=== PATIENT | male | born 1995 | race Caucasian/White ===

== ENCOUNTER 2023-07-23 13:39 | Emergency (ER) | payer MEDICAID, SELFPAY ==
[2023-07-23 13:50] VITALS: BP 107/72; PULSE 90; RESP 16; TEMP 36.8; O2SAT 98; BMI 26.4
--- NOTE | 2023-07-23 14:10 | ED_ITS ---
Documented by User: JEAN-CLAUDE Hernández 07/23/23 16:08 HPI - Dental/Oral 2 General: Chief complaint: Skin/Abscess/Foreign Body Stated complaint: abcess in mouth Time Seen by Provider: 07/23/23 14:08 Source: patient Mode of arrival: ambulatory Limitations: no limitations History of Present Illness: Patient is a 28-year-old male who presents to ED today for evaluation of a dental abscess. Patient states he has had abscess for about 5 days now. He was seen at a walk-in clinic 2 days ago and placed on Augmentin. He states he has had 5 doses of this medication. Yesterday and into today he started noticing swelling to the right side of his face and lip. He is not running fevers. Denies neck pain or neck swelling. He is able to swallow and control secretions. Onset (ago): day(s) Duration: constant Severity: moderate Relieving factors: nothing Exacerbating factors: nothing Context: history of dental caries and poor dental care Associated symptoms: Reports no associated symptoms; Denies fever(s) or odynophagia Treatment prior to arrival: other (antibiotics) Review of Systems 2 Const: Denies: fever(s), chills, fatigue or malaise Eyes: Denies: change in vision or blurry vision ENMT: Reports: dental pain and sinus pain; Denies: throat pain, odynophagia, nasal discharge or nasal congestion Card: Denies: chest pain Resp: Denies: dyspnea GI: Denies: nausea or vomiting Musc: Denies: neck pain, back pain, extremity pain or joint pain Neuro: Denies: headache(s), numbness in extremities, weakness in extremities or sensory changes [facility] ED 2 PFSH: Social History Smoking and tobacco/nicotine status: current every day tobacco/nicotine user Alcohol intake: never Substance/Drug Use: never Physical Exam 2 Const: COMMON NORMALS: no acute distress, average body habitus, patient oriented x3, no limitations, healthy appearing, alert and well nourished HENMT: COMMON NORMALS: Normal external nose present FACE & SINUS: other (swelling/tenderness to R maxillary facial region and upper lip) NOSE: Normal external nose present MOUTH: other (swollen upper lip) TEETH & GINGIVA: Y es caries and Yes poor dentition TEETH & GINGIVA IMAGES: 1. purulent draining abscess formation; severe dental caries 2. cyst vs extension of abscess THROAT: posterior oropharynx normal and tonsils normal Eye: GENERAL EYE: appearance normal, both eyes and all related structures Neck/C-Spine: COMMON NORMALS: no lymphadenopathy GENERAL: Yes normal visual inspection, No anterior neck swelling and No submandibular swelling Resp: COMMON NORMALS: normal respiratory effort Cardio: COMMON NORMALS: regular rate and regular rhythm RATE: regular rate RHYTHM: regular rhythm Neuro: COMMON NORMALS: patient oriented x3, CN's II-XII intact bilaterally, moves all extremities, no focal motor deficits, no sensory deficits noted and gait normal SENSORIUM/ORIENTATION: Yes alert Course 2 Vital Signs: Vital signs: Vital Signs Temperature 98.2 F 07/23/23 13:50 Pulse Rate 93 07/23/23 14:34 Respiratory Rate 16 07/23/23 14:34 Blood Pressure 102/63 07/23/23 14:34 Pulse Oximetry 99 07/23/23 14:34 Oxygen Delivery Me thod Room Air 07/23/23 14:34 MDM - Dental/Oral Medical Decision Making Patient is a 28-year-old male here for a dental abscess as well as diffuse right-sided facial swelling. Vital signs are stable. Blood work is unremarkable. CT scan showing right anterior maxillary periapical cyst/abscess. He has been on antibiotics for approximately 24 hours now does not seem to be improving. He was given IV Unasyn here. [facility] Lab Data 07/23/23 14:27 07/23/23 14:[address] 07/23/23 14:21 IMPRESSION: Right anterior maxillary periapical cyst with apparent secondary infection and abscess formation with a small intraoral and small buckle component. Overlying cellulitis. Laboratory Results WBC 10.04 10^3/uL (3.29-11.43) 07/23/23 14:27 RBC 5.08 10^6/uL (3.85-5.65) 07/23/23 14:27 Hgb 15.40 g/dL (11.27-16.99) 07/23/23 14:27 Hct 46.2 % (37-53) 07/23/23 14: MCV 90.9 fl (82-101) 07/23/23 14:27 MCH 30.3 pg (27-33) 07/23/23 14:27 MCHC 33.3 g/dL (30-55) 07/23/23 14:27 RDW 12.7 % (12.1-15.1) 07/23/23 14:27 Plt Count 205 10^3/cmm (157-399) 07/23/23 14:27 MPV 9.1 fL (7.4-10.4) 07/23/23 14:27 Neut % (Auto) 68.0 % 07/23/23 14:27 Lymph % (Auto) 21.4 % 07/23/23 14:27 [place] % (Auto) 9.0 % 07/23/23 14:27 Eos % (Auto) 1.0 % 07/23/23 14:27 Baso % (Auto) 0.3 % 07/23/23 14:27 Neut # (Auto) 6.83 10^3/uL (1.8-7.7) 07/23/23 14:27 Lymph # (Auto) 2.2 10^3/uL (0.8-4.8) 07/23/23 14:27 [place] # (Auto) 0.9 10^3/uL (0.2-0.9) 07/23/23 14:27 Eos # (Auto) 0.1 10^3/uL (0.0-0.8) 07/23/23 14:27 Baso # (Auto) 0.0 10^3/uL (0.0-0.1) 07/23/23 14:27 Nucleated RBC % (auto) 0 % 07/23/23 14:27 Nucleated RBCs # 0.0 /100WBC 07/23/23 14:27 Sodium 140 mmol/L (136-145) 07/23/23 14:27 Potassium 4.1 mmol/L (3.5-5.1) 07/23/23 14:27 Chloride 101 mmol/L (98-107) 07/23/23 14:27 Carbon Dioxide 28 mmol/L (22-29) 07/23/23 14:27 Anion Gap 15.1 (5-19) 07/23/23 14:27 BUN 10 mg/dL (6-20) 07/23/23 14:27 Creatinine 0.8 mg/dL (0.7-1.2) 07/23/23 14:27 GFR Calculation 114.3 mL/min (90-130) 07/23/23 14:27 Glucose 87 mg/dL (65-115) 07/23/23 14:27 Calculated Osmolality 288 mOsm/kg (285-295) 07/23/23 14:27 Calcium 10.1 mg/dL (8.5-10.5) 07/23/23 14:27 Total Bilirubin 0.4 mg/dL (0.15-1.2) 07/23/23 14:27 AST 13 U/L (0-40) 07/23/23 14:27 ALT 14 U/L (0-41) 07/23/23 14:27 Alkaline Phosphatase 106 U/L (40-130) 07/23/23 14:27 Total Protein 7.8 g/dL (6.6-8.7) 07/23/23 14:27 Albumin 4.6 g/dL (3.5-5.2) 07/23/23 14:27 Globulin 3.2 g/dL (1.3-4.6) 07/23/23 14:27 Discharge Plan Discharge Patient Disposition: Home Clinical Impression: Abscess, dental Condition: Stable Prescriptions: No Action amoxicillin-pot clavulanate 875-125 mg tablet 1 tab PO BID 10 Days Qty: 20 0RF Discharge Orders: Discharge ED (Routine); Ordered 07/23/23 Ordered By: Pradeep Solorzano Discharge Diet: Advance as tolerated Patient Instructions: Opioid Safety, Pain Management Activity Restrictions/Additional Instructions: Follow up with Dr Olmedo's office in [place], [place]. Call his office in [place] first thing in the morning at [phone] to schedule an appointment. Please tell the person scheduling the appointment that you are in the ER and he was consulted about this case and requested you be seen in his office as soon as possible. Return to the emergency department if any rapid worsening symptoms, difficulty swallowing, painful tongue movements, and as needed Coding Level of Care Code ED Plc Technician for Chg Fwd Documented by User: Pradeep SolorzanoPEDRO 07/23/23 17:52 HPI - Dental/Oral 2 General: Chief complaint: Skin/Abscess/Foreign Body Stated complaint: abcess in mouth Time Seen by Provider: 07/23/23 14:08 [facility] ED 2 PFSH: Social History Smoking and tobacco/nicotine status: current every day tobacco/nicotine user Alcohol intake: never Substance/Drug Use: never Physical Exam 2 HENMT: TEETH & GINGIVA IMAGES: 1. purulent draining abscess formation; severe dental caries 2. cyst vs extension of abscess Course 2 Vital Signs: Vital signs: Vital Signs Temperature 98.2 F 07/23/23 13:50 Pulse Rate 93 07/23/23 14:34 Respiratory Rate 16 07/23/23 14:34 Blood Pressure 102/63 07/23/23 14:34 Pulse Oximetry 99 07/23/23 14:34 Oxygen Delivery Me thod Room Air 07/23/23 14:34 MDM - Dental/Oral Medical Decision Making Patient is a 28-year-old male here for a dental abscess as well as diffuse right-sided facial swelling. Vital signs are stable. Blood work is unremarkable. CT scan showing right anterior maxillary periapical cyst/abscess. He has been on antibiotics for approximately 24 hours now does not seem to be improving. He was given IV Unasyn here. Will consult with [facility]. Patient received from JEAN-CLAUDE Briggs. Awaiting consult Called to see from [facility] call pertaining to [facility] consult. Dr. Olmedo advised to call the office in the morning for an appointment. Information will be provided for patient. Patient does already have a prescription for Augmentin sent to his pharmacy. Discussed with patient the importance of follow-up with [facility] due to the abscess. Differential Diagnosis Likely gingival abscess, toothache, dental abscess and fracture of tooth Medical Records I reviewed the patient's medical records. Lab Data I reviewed the patient's lab results. 07/23/23 14:27 07/23/23 14:[address] 07/23/23 14:21 IMPRESSION: Right anterior maxillary periapical cyst with apparent secondary infection and abscess formation with a small intraoral and small buckle component. Overlying cellulitis. Laboratory Results WBC 10.04 10^3/uL (3.29-11.43) 07/23/23 14:27 RBC 5.08 10^6/uL (3.85-5.65) 07/23/23 14:27 Hgb 15.40 g/dL (11.27-16.99) 07/23/23 14:27 Hct 46.2 % (37-53) 07/23/23 14:27 MCV 90.9 fl (82-101) 07/23/23 14:27 MCH 30.3 pg (27-33) 07/23/23 14:27 MCHC 33.3 g/dL (30-55) 07/23/23 14:27 RDW 12.7 % (12.1-15.1) 07/23/23 14:27 Plt Count 205 10^3/cmm (157-399) 07/23/23 14:27 MPV 9.1 fL (7.4-10.4) 07/23/23 14:27 Neut % (Auto) 68.0 % 07/23/23 14:27 Lymph % (Auto) 21.4 % 07/23/23 14:27 [place] % (Auto) 9.0 % 07/23/23 14:27 Eos % (Auto) 1.0 % 07/23/23 14:27 Baso % (Auto) 0.3 % 07/23/23 14:27 Neut # (Auto) 6.83 10^3/uL (1.8-7.7) 07/23/23 14:27 Lymph # (Auto) 2.2 10^3/uL (0.8-4.8) 07/23/23 14:27 [place] # (Auto) 0.9 10^3/uL (0.2-0.9) 07/23/23 14:27 Eos # (Auto) 0.1 10^3/uL (0.0-0.8) 07/23/23 14:27 Baso # (Auto) 0.0 10^3/uL (0.0-0.1) 07/23/23 14:27 Nucleated RBC % (auto) 0 % 07/23/23 14:27 Nucleated RBCs # 0.0 /100WBC 07/23/23 14:27 Sodium 140 mmol/L (136-145) 07/23/23 14:27 Potassium 4.1 mmol/L (3.5-5.1) 07/23/23 14:27 Chloride 101 mmol/L (98-107) 07/23/23 14:27 Carbon Dioxide 28 mmol/L (22-29) 07/23/23 14:27 Anion Gap 15.1 (5-19) 07/23/23 14:27 BUN 10 mg/dL (6-20) 07/23/23 14:27 Creatinine 0.8 mg/dL (0.7-1.2) 07/23/23 14:27 GFR Calculation 114.3 mL/min (90-130) 07/23/23 14:27 Glucose 87 mg/dL (65-115) 07/23/23 14:27 Calculated Osmolality 288 mOsm/kg (285-295) 07/23/23 14:27 Calcium 10.1 mg/dL (8.5-10.5) 07/23/23 14:27 Total Bilirubin 0.4 mg/dL (0.15-1.2) 07/23/23 14:27 AST 13 U/L (0-40) 07/23/23 14:27 ALT 14 U/L (0-41) 07/23/23 14:27 Alkaline Phosphatase 106 U/L (40-130) 07/23/23 14:27 Total Protein 7.8 g/dL (6.6-8.7) 07/23/23 14:27 Albumin 4.6 g/dL (3.5-5.2) 07/23/23 14:27 Globulin 3.2 g/dL (1.3-4.6) 07/23/23 14:27 All radiology interpretation(s) finalized by discharge Discharge Plan Discharge Patient Disposition: Home Clinical Impression: Abscess, dental Condition: Stable Prescriptions: No Action amoxicillin-pot clavulanate 875-125 mg tablet 1 tab PO BID 10 Days Qty: 20 0RF Discharge Orders: Discharge ED (Routine); Ordered 07/23/23 Ordered By: Pradeep Solorzano Discharge Diet: Advance as tolerated Patient Instructions: Opioid Safety, Pain Management Activity Restrictions/Additional Instructions: Follow up with Dr Olmedo's office in [place], [place]. Call his office in [place] first thing in the morning at [phone] to schedule an appointment. Please tell the person scheduling the appointment that you are in the ER and he was consulted about this case and requested you be seen in his office as soon as possible. Return to the emergency department if any rapid worsening symptoms, difficulty swallowing, painful tongue movements, and as needed Coding Level of Care Code ED Plc Technician for Ann Sandoval
--- NOTE | 2023-07-23 14:21 | CTR_ITS ---
PROCEDURE INFORMATION: Exam: CT Maxillofacial With Contrast Exam date and time: 07/23/2023 2:55 PM Age: 28 years old Clinical indication: Jaw pain; Additional info: Upper dental abscess TECHNIQUE: Imaging protocol: Computed tomography of the face with contrast. Radiation optimization: All CT scans at this facility use at least one of these dose optimization techniques: automated exposure control; mA and/or kV adjustment per patient size (includes targeted exams where dose is matched to clinical indication); or iterative reconstruction. Contrast material: OMNI 350; Contrast volume: 100 ml; Contrast route: INTRAVENOUS (IV); COMPARISON: No relevant prior studies available. RADIATION DOSE METRICS: Total DLP (mGy-cm): 635.48 FINDINGS: Orbital cavities: Orbits are normal. Globes are unremarkable. Bones/joints: See Dental finding. Paranasal sinuses: Normal. No air-fluid levels. Lymph nodes: Right submandibular lymphadenopathy. Mildly enlarged sublingual and submental nodes. Soft tissues: See Dental finding. Dental: Lucency in anterior right maxillary alveolus is noted likely representing a periapical cyst measuring up to 2.0 cm. The anterior bony margin is somewhat eroded with overlying soft tissue swelling. There is a small adjacent rim enhancing hypodense collection measuring 8 mm that is in contiguity with this area of bony erosion. Overall findings likely indicate a secondary infection with abscess that is centered in the maxillary alveolus with a small intraoral and a small buccal component. Multiple dental caries. Additional bilateral maxillary alveolar cystic changes. CT/CT facial bones w con [id number] IMPRESSION: Right anterior maxillary periapical cyst with apparent secondary infection and abscess formation with a small intraoral and small buckle component. Overlying cellulitis.
[2023-07-23 14:34] VITALS: BP 102/63; PULSE 93; RESP 16; O2SAT 99
[2023-07-23 14:34] LABS: Basophils % 0.3 %; Eosinophils # 0.1 10^3/uL (0.0-0.8); Hematocrit 46.2 % (37-53); Lymphocytes # 2.2 10^3/uL (0.8-4.8); Lymphocytes % 21.4 %; Mean Corpuscular HGB Conc 33.3 g/dL (30-55); Mean Corpuscular Hemoglobin 30.3 pg (27-33); Mean Corpuscular Volume 90.9 fl (82-101); Mean Platelet Volume 9.1 fL (7.4-10.4); Monocytes # 0.9 10^3/uL (0.2-0.9); Neutrophils # 6.83 10^3/uL (1.8-7.7); Nucleated Red Blood Cells % 0 %; Platelet Count 205 10^3/cmm (157-399); Red Blood Count 5.08 10^6/uL (3.85-5.65); Red Cell Distribution Width 12.7 % (12.1-15.1); White Blood Count 10.04 10^3/uL (3.29-11.43)
[2023-07-23 14:57] LABS: Alanine Aminotransferase 14 U/L (0-41); Albumin Level 4.6 g/dL (3.5-5.2); Alkaline Phosphatase 106 U/L (40-130); Anion Gap 15.1 (5-19); Aspartate Amino Transferase 13 U/L (0-40); Blood Urea Nitrogen 10 mg/dL (6-20); Calcium 10.1 mg/dL (8.5-10.5); Carbon Dioxide 28 mmol/L (22-29); Chloride 101 mmol/L (98-107); Globulin 3.2 g/dL (1.3-4.6); Glomerular Filtration Rate 114.3 mL/min (90-130); Glucose 87 mg/dL (65-115); Osmolality Calculated 288 mOsm/kg (285-295); Potassium 4.1 mmol/L (3.5-5.1); Sodium 140 mmol/L (136-145); Total Bilirubin 0.4 mg/dL (0.15-1.2); Total Protein 7.8 g/dL (6.6-8.7)
[2023-07-23] MEDS: iohexol 350 mg/mL 500 mL Btl (per mL) IV (14:59)
[2023-07-23] MEDS: ampicillin-sulbactam 1.5 GM in sodium chloride 0.9% (plus) 50 ML IV (15:44)
[2023-07-23 17:50] VITALS: BP 121/73; PULSE 84; RESP 16; O2SAT 97
== END 2023-07-23 17:52 | disposition home or self-care (01) ==
PROVIDERS: Emergency Provider Physician Assistant
DX: K04.7 Periapical abscess without sinus (principal); Z72.0 Tobacco use
CPT/HCPCS: 36415; 70487; 80053; 85025; 87040; 96365; 99285; J0295; Q9967

== ENCOUNTER → 2023-10-23 09:32 | Outpatient (BNVA) | payer BC, MEDICAID, SELFPAY | PROVIDERS: PCP Nurse Practitioner; Visit Provider Nurse Practitioner | DX: R00.2 Palpitations (principal); G47.00 Insomnia, unspecified; F41.9 Anxiety disorder, unspecified | CPT/HCPCS: 80053; 83735; 84443; 85025 ==

== ENCOUNTER → 2025-04-16 11:18 | Outpatient (BNVA) | payer BC, MEDICAID, SELFPAY | PROVIDERS: PCP Nurse Practitioner; Visit Provider Nurse Practitioner | DX: R10.13 Epigastric pain (principal) | CPT/HCPCS: 85025 ==

== ENCOUNTER 2025-05-01 11:12 | Outpatient (CLI) | payer BC, MEDICAID, SELFPAY ==
--- NOTE | 2025-05-01 11:00 | US_ITS ---
WS: [id number] Complete ABDOMINAL ULTRASOUND HISTORY: R10.13 - Epigastric pain COMPARISON: None available. Liver: 14.6 cm in length. Normal size liver and echogenicity. No bile duct dilatation or mass. Portal Vein: Normal hepatopetal flow with monophasic waveform. Gallbladder: Normally distended gallbladder with no stones or wall thickening. CBD: 0.3 cm Pancreas: Normal size and echogenicity. Right kidney: 9.7 cm x 5.6 x 5.4 cm. Cortex:1.0 cm. Normal size and echogenicity. No hydronephrosis or mass. Left kidney: 10.7 cm x 4.7 cm x 4.5 cm. Cortex: 1.2 cm. Normal size and echogenicity. No hydronephrosis or mass. Spleen: 9.3 cm. Normal size and echogenicity. Aorta and IVC: Unremarkable abdominal aorta and IVC. US/US abdomen complete* [id number] Impression: Normal complete abdomen ultrasound.
== END 2025-05-01 11:13 | disposition home or self-care (01) ==
LOC: RAD 11:15
PROVIDERS: PCP Nurse Practitioner; Visit Provider Nurse Practitioner
DX: R10.13 Epigastric pain (principal)
CPT/HCPCS: 76700